=== PATIENT | female | born 1990 | race Caucasian/White ===

== ENCOUNTER 2020-09-07 07:38 | Outpatient (CLI) | payer OTHER | END 2020-09-07 18:50 | disposition home or self-care (01) | LOC: LAB 07:38 | PROVIDERS: ATTEND Emergency Medicine Pediatric Emergency Medicine | DX: Z03.818 Encounter for observation for suspected exposure to other biological agents ruled out (principal) ==

== ENCOUNTER → 2020-10-05 08:21 | Outpatient (CLI) | payer OTHER | END | disposition home or self-care (01) | LOC: LAB 08:21 | PROVIDERS: ATTEND Emergency Medicine Pediatric Emergency Medicine | DX: Z03.818 Encounter for observation for suspected exposure to other biological agents ruled out (principal) ==